=== PATIENT | male | born 1980 | race Asian ===

== ENCOUNTER 2017-08-09 12:08 | Emergency (ER) | payer OTHER ==
[~2017-08-09] VITALS: Ht 180.3 cm; Wt 83.9 kg
[2017-08-09 12:32] VITALS: Ht 180.3 cm; Wt 83.9 kg
[2017-08-09 13:57] VITALS: BP 133/79
== END 2017-08-09 13:57 | disposition home or self-care (01) ==
LOC: ED 12:08
DX: J20.9 Acute bronchitis, unspecified (principal)